=== PATIENT | male | born 1960 | race Caucasian/White ===

== ENCOUNTER 2023-05-07 19:13 | Emergency (ER) | payer SELFPAY ==
[~2023-05-07] VITALS: Ht 160 cm; Wt 75.0 kg
[~2023-05-07 19:13] MED LIST: IBUP-2028 MT
[2023-05-07 19:34] VITALS: BP 131/94; O2SAT 97
[2023-05-07 21:28] VITALS: PULSE 65; RESP 19; TEMP 98.2
== END 2023-05-07 21:33 | disposition home or self-care (01) ==
LOC: ER 19:13
DX: Z48.02 Encounter for removal of sutures (principal); E11.9 Type 2 diabetes mellitus without complications; I10 Essential (primary) hypertension; Z88.5 Allergy status to narcotic agent
CPT/HCPCS: 99281; Z7610

== ENCOUNTER 2023-05-08 00:10 | Emergency (ER) | payer SELFPAY ==
[~2023-05-08] VITALS: Ht 162.6 cm; Wt 64.0 kg
[2023-05-08 00:12] VITALS: BP 147/100; PULSE 76; RESP 20; TEMP 98; O2SAT 97
[2023-05-08] MEDS ORDERED: LEVETIRACETAM 1000MG PREMIX 100 ML IV ONE (00:45)
== END 2023-05-08 01:01 | disposition left against medical advice (07) ==
LOC: ER 00:10
DX: R56.9 Unspecified convulsions (principal); E11.9 Type 2 diabetes mellitus without complications; I10 Essential (primary) hypertension
CPT/HCPCS: 99283